=== PATIENT | female | born 1995 | race Caucasian/White ===

== ENCOUNTER 2018-05-24 20:46 | Emergency (ER) | payer OTHER ==
[2018-05-24 22:05] LABS: ABS Basophils 0.1 10^3/ul (0-0.2); ABS Eosinophils 0.1 10^3/ul (0-0.6); ABS Lymphocytes 2.7 10^3/ul (1.0-4.8); ABS Monocytes 0.8 10^3/ul (0-0.8); ABS Neutrophils 5.8 10^3/ul (1.5-7.7); ABS Nucleated RBC 0 10^3/ul; Eosinophil % 0.7 % (0-6); Hematocrit 36 % (35-47); Hemoglobin 12.5 g/dl (12.0-16.0); Lymphocyte % 28.8 % (25-47); Mean Corpuscular HGB Conc 35 g/dl (31-36); Mean Corpuscular Hemoglobin 33 pg (27-31); Mean Corpuscular Volume 93 fL (80-97); Mean Platelet Volume 8.4 um3 (7.4-10.4); Nucleated Red Blood Cells % 0.1; Platelet Count 225 10^3/ul (150-450); Red Cell Distribution Width 14 % (10.5-15); White Blood Count 9.4 10^3/ul (3.5-10.8)
[2018-05-24 22:10] LABS: INR 0.85 (0.77-1.02)
[2018-05-24 22:24] LABS: EGFR Non-African American 110.3 (>60)
--- NOTE | 2018-05-24 22:27 | ED ---
GI/ HPI - HPI Summary HPI Summary: Patient history of 21 weeks complains of vaginal spotting after intercourse 1.5 hours ago with subsequent suprapubic cramping/heaviness rated 3/ 10. Denies pain during intercourse. Blood is bright red, seen when wiping and in underwear. Denies vaginal pain and discharge. Denies prior history of bleeding or pain with intercourse. Patient has been evaluated by EXECUTIVE ASSISTANT TO PRESIDENT with prior ultrasound. Denies fever, cough, sore throat, CP, SOB, N/V/D, change in urine or BM. with history of one voluntary . Blood type unknown. Medical history is pulmonary valvular stenosis. - History of Current Complaint Chief Complaint: EDOBProblems Time Seen by Provider: 05/24/18 21:49 Stated Complaint: 21 WKS PREG/BLEEDING Hx Obtained From: Patient Onset/Duration: Started Minutes Ago Timing: Constant Severity: Mild Current Severity: Mild Vaginal Bleeding Description: Bright Red Pain Intensity: 0 Location of Pain: Suprapubic Pain Characteristics: Cramping - Allergy/Home Medications Allergies/Adverse Reactions: Allergies Allergy/AdvReac Type Severity Reaction Status Date / Time cefaclor Allergy Hives Verified 05/24/18 20:50 cephalexin [From Keflex] Allergy Hives Verified 05/24/18 20:50 PMH/Surg Hx/FS Hx/Imm Hx Endocrine/Hematology History: Denies: Hx Anticoagulant Therapy Cardiovascular History: Denies: Hx Cardiac Arrest History: Denies: Hx Dialysis Neurological History: Denies: Hx CVA Infectious Disease History: No Infectious Disease History: Denies: Traveled Outside the [place] in Last 30 Days - Social History Alcohol Use: None Substance Use Type: Reports: None Smoking Status (MU): Never Smoked Tobacco Review of Systems Constitutional: Negative Eyes: Negative ENT: Negative Cardiovascular: Negative Respiratory: Negative Positive: Abdominal Pain Positive: see HPI Musculoskeletal: Negative Skin: Negative Neurological: Negative Psychological: Normal All Other Systems Reviewed And Are Negative: Yes Physical Exam - Summary Physical Exam Summary: Mild tenderness suprapubically. Abdomen exam otherwise unremarkable. Patient refuses pelvic exam Triage Information Reviewed: Yes Vital Signs On Initial Exam: Initial Vitals Temp Pulse Resp BP Pulse Ox 98.8 F 102 18 114/75 98 05/24/18 20:50 05/24/18 20:50 05/24/18 20:50 05/24/18 20:50 05/24/18 20:50 Vital Signs Reviewed: Yes Appearance: Positive: Well-Appearing Skin: Positive: Warm Head/Face: Positive: Normal Head/Face Inspection Eyes: Positive: Normal Neck: Positive: Supple Respiratory/Lung Sounds: Positive: Clear to Auscultation Cardiovascular: Positive: Normal Musculoskeletal: Positive: Normal Neurological: Positive: Normal Psychiatric: Positive: Normal AVPU Assessment: Alert - [place] Coma Scale Best Eye Response: 4 - Spontaneous Best Motor Response: 6 - Obeys Commands Best Verbal Response: 5 - Oriented Coma Scale Total: 15 Diagnostics - Vital Signs Vital Signs Temp Pulse Resp BP Pulse Ox 05/24/18 20:50 98.8 F 102 18 114/75 98 - Laboratory Lab Results: Lab Results 05/24/18 05/24/18 Range/Units 21:58 21:58 WBC 9.4 (3.5-10.8) 10^3/ul RBC 3.80 L (4.00-5.40) 10^6/ul Hgb 12.5 (12.0-16.0) g/dl Hct 36 (35-47) % MCV 93 (80-97) fL MCH 33 H (27-31) pg MCHC 35 (31-36) g/dl RDW 14 (10.5-15) % Plt Count 225 (150-450) 10^3/ul MPV 8.4 (7.4-10.4) um3 Neut % (Auto) 61.4 (38-83) % Lymph % (Auto) 28.8 (25-47) % [place] % (Auto) 8.4 H (0-7) % Eos % (Auto) 0.7 (0-6) % Baso % (Auto) 0.7 (0-2) % Absolute Neuts (auto) 5.8 (1.5-7.7) 10^3/ul Absolute Lymphs (auto) 2.7 (1.0-4.8) 10^3/ul Absolute Monos (auto) 0.8 (0-0.8) 10^3/ul Absolute Eos (auto) 0.1 (0-0.6) 10^3/ul Absolute Basos (auto) 0.1 (0-0.2) 10^3/ul Absolute Nucleated RBC 0 10^3/ul Nucleated RBC % 0.1 INR (Anticoag Therapy) 0.85 (0.77-1.02) Result Diagrams: 05/24/18 21:58 05/24/18 21:58 Lab Statement: Any lab studies that have been ordered have been reviewed, and results considered in the medical decision making process. GIGU Course/Dx - Course Course Of Treatment: Patient history of 21 weeks complains of vaginal spotting after intercourse 1.5 hours ago with subsequent suprapubic cramping/ heaviness rated 3/10. Denies pain during intercourse. Blood is bright red, seen when wiping and in underwear. Denies vaginal pain and discharge. Denies prior history of bleeding or pain with intercourse. Patient has been evaluated by EXECUTIVE ASSISTANT TO PRESIDENT with prior ultrasound. Denies fever, cough, sore throat, CP, SOB, N/V /D, change in urine or BM. with history of one voluntary . Blood type unknown. Medical history is pulmonary valvular stenosis. Physical exam: Mild tenderness suprapubically. Abdomen exam otherwise unremarkable. Patient refuses pelvic exam by male provider. No female providers available at this time. Patient eloped. Vital signs within normal limits and stable. Ultrasound negative for abruption. Blood type O+. - Diagnoses Provider Diagnoses: Vaginal bleeding, Discharge - Sign-Out/Discharge Documenting (check all that apply): Patient Departure - Discharge Plan Condition: Stable Disposition: ELOPEMENT Referrals: No Primary Care Phys,NOPCP [Primary Care Provider] - - Billing Disposition and Condition Condition: STABLE Disposition: Elopement
[2018-05-24 23:40] VITALS: BP 0/0
--- NOTE | 2018-05-24 23:54 | RAD ---
EXAM: US Uterus, Limited CLINICAL HISTORY: 22 years old, female; Signs and symptoms; Lmp or gestational age (in weeks): 21 wks; Other: Spotting; ; Additional info: 21wks, bleeding after intercourse TECHNIQUE: Real-time ultrasound of the maternal uterus (limited) with image documentation. COMPARISON: No relevant prior studies available. FINDINGS: EGA: 20 weeks 6 days. HOWARD: 10/05/2018. Fetus: Single living intrauterine gestation. Position: Cephalic Heart rate: 140 bpm Anatomy: Grossly normal as seen. Placenta: Posterior, no previa. No abruption. Cervix: Long and closed measuring 3.5 cm. Amniotic fluid: Subjectively normal, TORIE = 15.2 cm. BIOMETRICS BPD: 5.0 cm, 21 weeks 2 days HC: 18.4 cm, 20 weeks 6 days AC: 15.5 cm, 20 weeks 5 days FL: 3.3 cm, 20 weeks 4 days EGA by ultrasound: 20 weeks 6 days (HOWARD = 10/05/2018). EFW: 367 +/- 54 g (33 percentile) IMPRESSION: Single living intrauterine fetus with an ultrasound age of 20 weeks 6 days which is concordant with the clinical age. No sonographic findings to correlate with patient's symptomatology.
== END 2018-05-24 23:39 | disposition home or self-care (01) ==
LOC: ED 20:46
DX: O46.8X2 Other antepartum hemorrhage, second trimester (principal); R10.9 Unspecified abdominal pain; Z3A.21 21 weeks gestation of pregnancy
CPT/HCPCS: 36415; 76815; 80053; 85025; 85610; 86140; 86900; 86901; 99282